=== PATIENT | male | born 1975 | race Caucasian/White ===

== ENCOUNTER 2019-01-08 08:56 | Day surgery (SDC) | payer OTHER, SELFPAY ==
[2019-01-07 15:09] VITALS: BMI 28.7
[2019-01-08] VITALS (13 sets, daily range): BP systolic 120–149; BP diastolic 67–98; PULSE 78–110; RESP 12–20; TEMP 36.1–43; O2SAT 93–99
--- NOTE | 2019-01-08 10:28 | HMH.ANESCL ---
[facility] Anesthesia Checklist - Structural Data Admitted From: Home Planned Operative Procedure/s: scrotal exploration Consent for Planned Operative Procedure(s) Verified: Yes - Airway Assessment C-Spine Mobility Assessed: Yes TMJ Mobility Assessed: Yes Dentition: Good Dentition - Neurological Assessment Level of Consciousness: Awake, Alert, Appropriate - Anesthesia Plan Anesthesia Risk discussed: Yes ASA Class: II Anesthesia Type: General [facility] History I have reviewed the patient's past medical history: Yes Medical History: Denies:: Cancer, Diabetes Mellitus Type 1, Diabetes Mellitus Type 2, Internal Pacemaker, MRSA, Seizures *Have you ever received a pneumonia vaccine?: No *Have you received a flu vaccine this season?: No Other Medical History: Denies: Blood Transfusion Reaction Other Surgeries: Yes: No Previous Surgery, Colonoscopy. No: Pacemaker Amputation: No Fractures: No - *Social History Smoking Status: Current every day smoker Tobacco Type: cigarettes # Packs/Day (cigarettes): 1 Alcohol Intake: never Alcohol Intake Frequency:: a few times a week Substance Use Type: denies use *Occupational Status:: employed Housing: house Household Members: spouse *Travel in the last 8 weeks: None - Psychiatric History Expresses thoughts of harming self/others: None Suicide Plan Description: No Plan Family Hx:: No significant family history
--- NOTE | 2019-01-08 10:29 | HMH.ANESI ---
[facility] Anesthesia Record Part I Intake, IV Amount: 1,000 Estimated blood loss (mL): 0 Urine output (mL): 0 Blood Pressure: 120/75 SaO2: 98 Pulse Rate: 79 Respiratory Rate: 12 Temperature: 98.4 F Patient is:: Awake, Stable Stable to PACU at:: 10:30
--- NOTE | 2019-01-08 10:30 | HMH.ANESII ---
[facility] Anesthesia Record Part II Discharge Time: 11:00 Destination: [facility] PACU nurse assessment reviewed?: Yes Patient Condition:: Good Anesthesia Complications:: None Swallowing reflex intact?: Yes Cyanosis?: No
--- NOTE | 2019-01-08 10:31 | P.PN_ITS ---
[facility] Anesthesia Record Part II Discharge Time: 11:00 Destination: [facility] PACU nurse assessment reviewed?: Yes Patient Condition:: Good Anesthesia Complications:: None Swallowing reflex intact?: Yes Cyanosis?: No
--- NOTE | 2019-01-08 11:34 | PC.NURSE ---
1035-Pt responsive, LMA removed at this time. 1040-Ice pack applied to scrotum. pt eating ice chips, tolerating well.
--- NOTE | 2019-01-08 16:51 | HMH.OPNOTE ---
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 He also had a left-sided vasectomy. In healing his right scrotal skin has an area of traction. To the cord stump. This causes issues with hygiene as well as mild irritation and discomfort. He presents today for scrotal exploration and full resolution with release of scrotal skin Operative findings:: Active scar subcutaneously Operative note:: After adequate general anesthesia the genital area was prepped and draped in standard fashion. In the upper right scrotum he has a divot present with the scrotal skin and densely adhered to the cord stop. The superficial skin was excised with electrocautery. Then cautiously the cord stump was delivered by her incising the reactive scar circumferentially. An additional 2-1/2 to 3 cm of stop cord was exposed and skeletonized. This was taken with 2 pedicles clamped and divided. The vas was also tied separately with 2-0 chromic. The cord stump was closed first with a 0 silk followed by a 2-0 chromic suture ligature this was all hemostatic. An additional 2 cm of cord was excised. Dermabond was applied. Condition: stable Disposition: PACU Specimens:: none Complications:: none, He was placed on bactrim bid for one week
== END 2019-01-08 12:00 | disposition home or self-care (01) ==
PROVIDERS: PCP Family Medicine; Visit Provider Urology
PROC: (CPT 15004; principal; 2019-01-08 09:30)
DX: N50.89 Other specified disorders of the male genital organs (principal); L98.0 Pyogenic granuloma
CPT/HCPCS: 15004; 96374; J2405

== ENCOUNTER 2021-02-15 15:42 | Emergency (ER) | payer OTHER, SELFPAY ==
--- NOTE | 2021-02-15 15:45 | ECG_ITS ---
APPROVED REPORT Exam: Resting ECG HR:115 bpm ECG Measurements Heart Rate 115 AXES MA 138 P 43 QRSd 80 QRS 69 QT 336 T 13 QTc 464 Conclusion Sinus tachycardia Otherwise normal ECG Electronically signed by : Austen Meza, 02/17/2021 21:40:25
[2021-02-15 15:47] VITALS: BP 163/102; PULSE 115; RESP 18; TEMP 36.9; O2SAT 99; BMI 28.7
--- NOTE | 2021-02-15 15:53 | HMH.EDCP ---
ED Disposition Clinical Impression: Atypical chest pain Disposition: Home, Self-Care Condition on Discharge: Good Instructions: DI for Atypical Chest Pain Additional Instructions: Take [id number] Tylenol or ibuprofen for your pain. Follow-up with a primary care physician of your choice if your symptoms do not improve in the next few days. Your work-up today in the emergency department and not reveal any life-threatening or dangerous causes for your symptoms. Nevertheless, I suggest that you follow-up with a primary care physician for further testing that could identify causes which are not identifiable in the emergency department today. Turn to the emergency department if your symptoms worsen in any way. Referrals: Provider,Referral, [Primary Care Provider] - - Critical Care Critical Care Time: No Attestation: On 02/15/21, the high probability of a clinically significant, sudden or life threatening deterioration of the following system(s) required my full and direct attention, intervention and personal management. The time I documented below is in addition to time spent performing reported procedures but includes the following listed in this critical care notation. Medical Decision Making - Medical Records Medical records reviewed: Yes: I reviewed the patient's medical records. - Ten Inquiry Pt receiving controlled substance: No Vital Signs: 02/15/21 15:47 02/15/21 16:09 02/15/21 16:30 Temperature 98.5 F Temperature Source Oral Pulse Rate 104 H 103 H Pulse Rate [Right] 115 H Respiratory Rate 18 21 19 Blood Pressure 144/96 H 144/96 H Blood Pressure [Right Arm] 163/102 H Blood Pressure Mean 105 Blood Pressure Mean [Right Arm] 122 02 Sat by Pulse Oximetry 99 96 95 Oxygen Delivery Method Room Air - Lab Data Lab results reviewed: Yes: I reviewed the patient's lab results. Lab Results 02/15/21 13:45: WBC 10.4, RBC 4.98, Hgb 16.2, Hct 46.8, MCV 93.8, MCH 32.5 H, MCHC 34.6, RDW 13.3, Plt Count 259, MPV 8.5, Neut % (Auto) 63.9, Lymph % (Auto) 26.8, [place] % (Auto) 6.6, Eos % (Auto) 1.8, Baso % (Auto) 0.8, Neut # (Auto) 6.7, Lymph # (Auto) 2.8, [place] # (Auto) 0.7, Eos # (Auto) 0.2, Baso # (Auto) 0.1 02/15/21 13:45: Sodium 142, Potassium 3.5, Chloride 103, Carbon Dioxide 28, Anion Gap 14.5, BUN 19, Creatinine 1.00, Estimated Creat Clear 121, Estimated GFR 81, Est GFR ( Amer) 98, Glucose 87, Calcium 10.0, Total Bilirubin 0.4, AST 37, ALT 37, Alkaline Phosphatase 61, Troponin I < 0.01, Total Protein 8.4 H, Albumin 5.1 H, Globulin 3.3 H, Albumin/Globulin Ratio 1.5 Result diagrams: 02/15/21 13:45 02/15/21 13:45 Orders (Tests/Meds): ORDERS Category Date Time Status Troponin I Q3H Lab 02/15/21 19:30 Ordered Troponin I Q3H Lab 02/15/21 22:30 Ordered - Radiology Data #1 Image(s): Chest Image Reviewed: Yes I reviewed the patient's radiology results, Yes I reviewed the patient's radiology image, Yes I have reviewed radiologist's interpretation - ECG Data Tracing #1 I reviewed this ECG and interpreted as documented below: The EKG was performed at [facility] on February 15. It shows a sinus tachycardia at 115 bpm. Otherwise the EKG is normal. There is no ischemia. There is no early repolarization. There are no dysrhythmias. Axes are normal. Normal Sinus Rhythm: Yes Arrhythmias present: sinus tach Medical Decision Narrative: The patient presents to the emergency department complaining of chest pain that is ongoing for several days. Has been constant in nature. It is not exertional. The patient's work-up in the emergency department not reveal any life-threatening or dangerous causes for the patient's chest pain. The EKG does not show any ischemic changes. The patient's troponin is undetectable. Patient's chest x-ray is also unremarkable. I feel that the patient is suffering from atypical chest pain and can be safely discharged home with instructions
[2021-02-15 16:09] VITALS: BP 144/96; PULSE 104; RESP 21; O2SAT 96
--- NOTE | 2021-02-15 16:21 | XR_ITS ---
PROCEDURE: XR CHEST PORTABLE CLINICAL HISTORY: Dyspnea, COVID+, CP COMPARISON: No exams were available for comparison FINDINGS: The cardiomediastinal silhouette and pulmonary vascularity are within normal limits. The lungs are clear without infiltrates, suspicious nodules, or pleural effusions. No acute bony abnormalities. IMPRESSION: No acute findings. Dictated by: Zeeshan Bravo MD 02/15/2021 16:46 Zeeshan Bravo MD in [place] 02/15/2021 16:46
[2021-02-15 16:30] VITALS: BP 144/96; PULSE 103; RESP 19; O2SAT 95
[2021-02-15 16:30] LABS: Basophils # 0.1 K/mm3 (0-0.2); Basophils % 0.8 % (0.1-2.0); Eosinophils # 0.2 K/mm3 (0.0-0.4); Eosinophils % 1.8 % (0.1-12.0); Hematocrit 46.8 % (42.0-52.0); Hemoglobin 16.2 g/dL (14.1-18.0); Lymphocytes # 2.8 K/mm3 (0.7-4.5); Lymphocytes % 26.8 % (10-50); Mean Corpuscular HGB Conc 34.6 g/dL (31.8-35.4); Mean Corpuscular Hemoglobin 32.5 pg (27.0-31.2); Mean Corpuscular Volume 93.8 fl (80-94); Mean Platelet Volume 8.5 fl (7.4-10.4); Monocytes # 0.7 K/mm3 (0.1-1.0); Monocytes % 6.6 % (1.7-9.3); Neutrophils # 6.7 K/mm3 (1.8-7.8); Neutrophils % 63.9 % (37.0-80.0); Platelet Count 259 K/mm3 (142-424); Red Blood Count 4.98 M/mm3 (4.60-6.20); Red Cell Distribution Width 13.3 % (11.5-17.5); White Blood Count 10.4 K/mm3 (4.8-10.8)
[2021-02-15 16:36] LABS: Chloride 103 mmol/L (98-107); Potassium 3.5 mmoL/L (3.5-5.1); Sodium 142 mmol/L (136-145)
[2021-02-15 16:39] LABS: Alanine Aminotransferase 37 U/L (12-78); Albumin Level 5.1 g/dl (3.5-5.0); Albumin/Globulin Ratio 1.5 (1.1-1.8); Alkaline Phosphatase 61 U/L (38-126); Anion Gap 14.5 mEq/L (5-15); Aspartate Amino Transferase 37 U/L (17-59); Bilirubin,Total 0.4 mg/dl (0.2-1.3); Blood Urea Nitrogen 19 mg/dl (9-20); Carbon Dioxide 28 mmol/L (22.0-30.0); Creatinine Clearance Estimated 121 mL/min (50-200); Estimated Glomerular Filt Rate 81 ml/min (>60); GFR (African American) 98 ML/MIN (>60); Globulin 3.3 g/dL (1.3-3.2); Glucose 87 mg/dl (74-100); Total Protein,Serum 8.4 g/dl (6.3-8.2)
[2021-02-15 16:55] LABS: Troponin I < 0.01 ng/ml (0.00-0.034)
[2021-02-15 17:11] VITALS: BP 134/89; PULSE 93; RESP 18; TEMP 36.9; O2SAT 100
== END 2021-02-15 17:11 | disposition home or self-care (01) ==
PROVIDERS: Emergency Provider Emergency Medicine
DX: R07.89 Other chest pain (principal); F17.210 Nicotine dependence, cigarettes, uncomplicated
CPT/HCPCS: 71045; 80053; 84484; 85025; 93005; 99282; 99283

== ENCOUNTER 2022-11-08 16:28 | Emergency (ER) | payer OTHER, SELFPAY ==
[2022-11-08 16:30] VITALS: BP 147/92; PULSE 112; RESP 20; TEMP 36.8; O2SAT 96; BMI 28.7
--- NOTE | 2022-11-08 16:47 | EXP.UTC ---
Discharge Plan Disposition Patient Disposition: Home, Self-Care Condition: Good Prescriptions Prescriptions: No Action loratadine 10 MG tablet 10 mg PO DAILY Referrals Follow up/Referrals: Orestes Norris MD [Primary Care Provider] - See instructions Activity Restrictions/Add. Instructions Additional Instructions/Restrictions: Keep the wound clean and dry. Keep a dressing on it if you are going to be getting it dirty. Watch the wound for signs of infection, such as redness, swelling, drainage, fever. etc. Take tylenol or ibuprofen for pain. Follow up with your regular doctor. Return in 7 to 10 days to have the sutures removed. GO TO THE ER FOR ANY WORSENING SYMPTOMS OR CONCERNS. Clinical Impressions Clinical Impression: Laceration of right lower extremity Instructions Patient Instructions: DI for Laceration Repair, DI for Laceration Repair -- Simple Discharge ED Provider: Mark Gallegos [facility] General Stated complaint: AO04/04@1500 lac to RT knee Time Seen by Provider: 11/08/22 16:47 History of Present Illness Provider Complaint: He states that he slipped with a chain saw and accidently cut the area just above his right knee. He denies any leg weakness. He denies any numbness or tingling of the extremity. The wound did have some bleeding, but he states that he was able to control it easily. Related Data Home Medications Medication Instructions Recorded Confirmed loratadine 10 mg tablet 10 mg PO DAILY allergies 01/07/19 02/05/19 Allergies Allergy/AdvReac Type Severity Reaction Status Date / Time No Known Allergies Allergy Verified 11/08/22 16:48 [facility] Disclaimer: The information contained in this section may have been updated after the patient was seen, as this information can be updated by other users. Social History Smoking Status: Current every day smoker tobacco type: cigarettes packs per day: 1 alcohol intake: never substance use type: denies use current occupational status: employed Travel in the last 8 weeks: None household members: spouse housing: house current occupation: self employed current occupational exposures/hazards: No caffeine: No ROS Obtained: Yes All systems reviewed & no additional complaints except as documented Constitutional Constitutional: Denies chills and Denies fever(s) Eyes Eyes: Denies eye discharge ENT Ears, Nose, Mouth, and Throat: Denies dizziness, Denies otalgia and Denies sore throat Cardiovascular Cardiovascular: Denies chest pain Respiratory Respiratory: Denies shortness of breath, Denies chest congestion, Denies cough, Denies stridor and Denies wheezing Gastrointestinal Gastrointestingal: Denies nausea or vomiting Musculoskeletal Musculoskeletal: Reports system reviewed and no additional complaints, except as documented and Denies arthralgias Integumentary/Breasts Skin/Breast: Reports as per HPI Neurologic Neurologic: Denies dizziness and Denies paresthesias Allergic/Immunologic Allergic/Immunologic: Denies wheezing Physical Exam General General appearance: alert and in no apparent distress Head Head exam: atraumatic, normocephalic and normal inspection Eye Eye exam: Present normal appearance, PERRL and EOMI ENT ENT exam: Present normal exam, normal oropharynx, mucous membranes moist, TM's normal bilaterally and normal external ear exam Neck Neck exam: Present normal inspection, full ROM and trachea midline; Absent meningismus or lymphadenopathy Chest Chest inspection: Present normal inspection and symmetric chest wall rise; Absent tenderness Respiratory Respiratory exam: Present normal lung sounds bilaterally; Absent respiratory distress Cardiovascular Cardiovascular exam: Present regular rate and normal rhythm; Absent JVD Abdominal Exam Abdominal exam: Present soft and normal bowel sounds; Absent distention, tenderness or guarding Extre
[2022-11-08 17:43] VITALS: BP 147/92; PULSE 112; RESP 20; TEMP 36.8; O2SAT 96
== END 2022-11-08 17:43 | disposition home or self-care (01) ==
PROVIDERS: Emergency Provider Nurse Practitioner Family; PCP Emergency Medicine
DX: S81.011A Laceration without foreign body, right knee, initial encounter (principal); F17.210 Nicotine dependence, cigarettes, uncomplicated; W31.2XXA Contact with powered woodworking and forming machines, initial encounter
CPT/HCPCS: 12002; 99213; 99214; G0463

== ENCOUNTER 2025-01-25 10:06 | Outpatient (CLI) | payer OTHER, SELFPAY ==
[2025-01-25 17:40] LABS: Coronavirus 19, PCR Not Detected (NotDetected); Human Rhinovirus Not Detected (NotDetected); Influenza A, PCR Not Detected (NotDetected); Influenza B, PCR Not Detected (NotDetected); Respiratory Syncytial Virus Not Detected (NotDetected)
--- OUTSIDE RECORDS SUMMARY | 2025-01-27 10:28 | XMS_ITS | Data Portability ---
Author Organization [facility] Boateng [facility] [employer] Address [address] [place] [address] Assessment Encounter Date Assessment Date Assessment LastModified by Organization Details LastModified Time 09/27/2023 09/27/2023 Preoperative diagnosis: Sinus tract on scrotum Postoperative diagnosis: Sinus tract on scrotum leading to foreign body/previous suture from previous surgery. Procedure: Excision foreign body, excision sinus tract, revision of incision on scrotum Anesthesia: General Complications: None Findings: Silk suture at the base of the sinus tract which is removed Operative report: After consent was obtained the patient was brought to the operating suite was placed in supine position. Anesthesia was induced. He was sterilely prepped and draped in normal fashion. His sinus tract was identified and grasped using an Allis. We created an elliptical incision around the sinus tract and then dissected down on the sinus tract for approximately 3 cm. At what appeared to be the base of the sinus tract we open the sinus tract seeing a silk suture and not from previous surgery. This was likely the source of the sinus tract from its inflammation. There was no sign of purulence or infection. We removed the suture. The base of the sinus tract was grasped using a clamp and then tied off using a stick tie of 3-0 Vicryl suture. Hemostasis was excellent and controlled using electrocautery. The tension on the skin was gone after excision of the sinus tract. We brought the subcutaneous tissues together using a 3-0 Vicryl suture. The skin was brought together using a 3-0 chromic suture in a horizontal mattress fashion. Sterile dressing was applied. Anesthesia reversed. Patient was taken to the recovery room in stable condition. Please note that we did use Marcaine without epinephrine for local anesthesia. [email or web address] Not available 09/27/2023 15:10:32 Plan of Treatment Reminders Order Date Submit Date Provider Last Modified By Organization Details Last Modified Time Details Appointments None recorded. Lab None recorded. Referral None recorded. Procedures None recorded. Surgeries excision, scrotal lesion (SURG) 2023 024 [email or web address] [facility], [address], [facility] [address], [place], [address], 4 16:45:27 Imaging None recorded. Medication Orders Percocet 7.5 mg-325 mg tablet 2023 024 [id number], [address], [place], [place], [phone], 4 15:07:40 doxycycline monohydrate 100 mg capsule 2023 024 [id number], [address], [place], [place], [phone], 4 10:15:36 Patient TargetsNo targets recorded. Patient Instructions Encounter Date Encounter Id Patient Instructions Last Modified By Organization Details Last Modified Time 08/03/2023 [id number] We agreed to try to exercise this sinus tract and abnormal area of the scrotum. We talked about risk, benefits and alternatives, including bleeding, infection, potential recurrence. [email or web address] Not available 08/07/2023 15:05:08 Reason for Referral None Reported. Results Created Date Observation Date Name Description Value Unit Range Abnormal Flag Note LastModifiedBy Organization Detail LastModifiedTime 09/27/19 24 09/27/2023 SURGI SERGIO surgical SEE BELOW normal Depar tment of Patho logy Surgi sergio Patho logy Repor t NAME: COREY LUCIANOPatrick REAVES PATH. :SS-2 [id number] Copy to: Diagn osis: Right scrot al sinus tract : Featu res consi stent with ruptu red folli cular type cyst with surro undin g infla med granu latio n tissu e and fibro sis. SOURC E OF SPECI MEN: SINUS ES, RIGHT SCROT AL TRACT CLINI SERGIO INFOR MATIO N: RIGHT SCROT AL MASS Gross Descr iptio n: Recei nicolasa in forma nanette label ed with the patie nt's name and desig nated as righ t scrot al sinus tract is an unori ented pink- youngblood skin ellip se which is 2.5 x 1.7 cm excis ed to a depth of 1.5 cm. The epide rmal surfa ce is pink- youngblood and wrink led with a punct ate dimpl e/pos sible sinus tract . The juancarlos ns are inked blue. Secti oning revea ls an appro ximat savannah 1.5 x 0.5 x 0.5 cm dark chantale sh-ta n possi ble cyst/ possi ble absce ss which commu nicat es with the skin surfa ce. The cyst/ absce ss is submi tted entir savannah in two casse ttes label ed A1-A2 . JAB 09/27 04:58 PM Micro scopi c Descr iptio n: A micro scopi c exami natio n has been perfo rmed and the resul t(s) are as noted above . BRADEN Rios MD Loretta d Out Date: 10/02 16:17 Page 1 of 1 Not Available [facility] [address] [place] [address], [phone], 10/02/2023 16:18:07 Result Notes None recorded. Problems Name Problem SNOMED Code Status Onset Date Resolution Date Notes Provider Name and Address Organization Details Recorded Time Scrotal mass [id number] Active 024 PERLA BARKER JR, MD [address] [place] [address], [phone] , [facility] 08/07/2023 15:04:39 Problem Notes None recorded. Medical Equipment None Reported. Allergies No known drug allergies Medications Name Sig Start Date Stop Date Status Note LastModified by Organization Details LastModified Time Percocet 7.5 mg-325 mg tablet Take 1 tablet every 6 hours by oral route as needed. 2023 active Not Available Not Available Not Avai lable doxycycline monohydrate 100 mg capsule Take 1 capsule twice a day by oral route. 10/19 completed Not Available Not Available Not Available testosterone active Not Available Not Available Not Available Vitals Date Recorded Body height Body mass index (BMI) Body weight Provider Name and Address Organization Details Last Updated DateTime 10/20/2023 177.8 cm 28.7 kg/m2 05111.47 g Kathleen Mcgrath [facility] 10/20/2023 10:15:19 Date Recorded Body height Body mass index (BMI) Body weight Provider Name and Address Organization Details Last Updated DateTime 08/03/2023 177.8 cm 28.7 kg/m2 47476.47 g Hannah Cliftonpherd [facility] 08/03/2023 10:07:54 Social History None recorded. Functional Status None recorded. Mental Status None recorded. Family History Nothing Reported. Medical History No medical history recorded. Past Encounters Encounter ID Performer Location Encounter Start Date Encounter Closed Date Diagnosis/Indication Diagnosis SNOMED-CT Code Diagnosis ICD10 Code Diagnosis Note [id number] MD CATINA ZENG JR, [facility] [address] [place] [address] 08/03/2023 09:52:40 08/03/2023 10:19:18 Scrotal mass 14573677 N50.89 [id number] PERLA BARKER JR, MD SURGERY SCHEDULE [address] [place] [address] 09/27/2023 13:28:14 09/27/2023 13:28:52 Postoperative pain 231497830 G89.18 [id number] MD CATINA ZENG JR, [facility] [address] [place] [address] 10/20/2023 09:58:26 10/23/2023 04:11:59 Scrotal mass 97636573 N50.89 Health Concerns Section Related Observation LastModified by Organization Detai ls LastModified Time None Recorded Concern Status LastModified by Organization Details LastModified Time None Recorded Advance Directives Directive None Recorded Payers Insurance Date Sequence Insurance Name Policy Number Policy Plascencia Covered Member ID Plascencia Member ID Guarantor Name 10/23/2023 1 [facility] [id number] Pee Luciano [id number] Pee Luciano Notes Date Note Type Note Provider Name and Address Organization Details Recorded Time 08/03/2023 text/html Patient is in today for evaluation of scrotal sinus with poor healing from previous scrotal surgery. 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 This healed poorly and he had a revision of his incision in 2018. Unfortunately, this did not heal either, and he appears to have a sinus tract in the right minnie scrotum. He has discomfort with this on a daily basis. He's interested in scrotoplasty. There's a mild amount of drainage from this area. MD Jose Armando [place], [address], [facility] 08/07/2023 15:05:33 10/20/2023 text/html Patient is in today for evaluation of scrotal sinus with poor healing from previous scrotal surgery. 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 This healed poorly and he had a revision of his incision in 2018. Unfortunately, this did not heal either, and he appears to have a sinus tract in the right minnie scrotum. He has discomfort with this on a daily basis. He's interested in scrotoplasty. There's a mild amount of drainage from this area. Patient underwent sinus tract excision September 27, 2023. Symptoms have resolved. Things are healing well. Pathology benign [place], [address], [facility] 10/22/2023 16:18:57
--- OUTSIDE RECORDS SUMMARY | 2025-01-27 10:28 | XMS_ITS | Data Portability ---
Author Organization [facility] Address [address] [place] [address] Assessment Encounter Date Assessment Date Assessment LastModified by Organization Details LastModified Time 11/03/2022 11/03/2022 Will obtain lab work from patient today. PATIENT TO CONTINUE WITH CURRENT MANAGEMENT. WE HAVE HAD EXTENSIVE DISCUSSIONS REGARDING CHRONIC ISSUES. WILL CALL PATIENT TO DISCUSS RESULTS OF LAB WORK AND MAKE PLANS BASED ON FINDINGS. [email or web address] Not available 11/03/2022 10:59:42 Plan of Treatment Reminders Order Date Submit Date Provider Last Modified By Organization Details Last Modified Time Details Appointments None recorded. Lab testosteron e, total, serum 2022 023 [facility] (Lab Registration) , [address] [place], [address], 3 06:12:52 testosteron e, free, serum 2022 023 [facility] (Lab Registration) , [place], [address], 3 23:08:41 CMP, serum or plasma 2022 023 [facility] (Laboratory), [address] [place], [address], 3 13:18:55 CBC w/ auto diff 2022 023 [facility] (Laboratory), [address] [place], [address], 3 12:48:27 TSH, serum or plasma 2022 023 [facility] (Laboratory), [address] [place], [address], 3 13:18:53 HbA1c (hemoglobin A1c), blood 2022 023 [facility] (Laboratory), [address] [place], [address], 3 13:23:35 lipid panel, serum 2022 023 [facility] (Laboratory), [address] [place], [address], 3 13:18:57 PSA, serum or plasma 2022 023 [facility] (Laboratory), [address] [place], [address], 3 13:18:51 Referral None recorded. Procedures None recorded. Surgeries None recorded. Imaging None recorded. Medication Orders citalopram 20 mg tablet 2022 023 [id number], [address] [place], [id number], 3 11:08:34 testosteron e cypionate 200 mg/mL intramuscul ar oil 2022 023 [id number], [address] [place], [id number], 3 12:30:29 Patient TargetsNo targets recorded. Patient InstructionsNo instructions recorded. Reason for Referral None Reported. Results Created Date Observation Date Name Description Value Unit Range Abnormal Flag Note LastModifiedBy Organization Detail LastModifiedTime 11/04/19 23 11/03/2022 CBC AUTO W DIFF WBC 6.9 10 4.5-11 .5 Not Available [facility] (Lab Registration) [address] [place], [address], 11/03/2022 12:48:27 11/04/19 23 11/03/2022 CBC AUTO W DIFF RBC 4.57 10 4.25-5 .57 Not Available [facility] (Lab Registration) [address] [place], [address], 11/03/2022 12:48:27 11/04/19 23 11/03/2022 CBC AUTO W DIFF HGB 14.8 g/dL 13.5-1 7.2 Not Available [facility] (Lab Registration) [address] [place], [address], 11/03/2022 12:48:27 11/04/19 23 11/03/2022 CBC AUTO W DIFF HCT 42.9 % 42.0-5 2.0 Not Available [facility] (Lab Registration) [address] [place], [address], 11/03/2022 12:48:27 11/04/19 23 11/03/2022 CBC AUTO W DIFF MCV 93.9 fL 80-95 Not Available [facility] (Lab Registration) [address] [place], [address], 11/03/2022 12:48:27 11/04/19 23 11/03/2022 CBC AUTO W DIFF MCH 32.4 pg 27.0-3 4.0 Not Available [facility] (Lab Registration) [address] [place], [address], 11/03/2022 12:48:27 11/04/19 23 11/03/2022 CBC AUTO W DIFF MCHC 34.5 g/dL 32.0-3 6.0 Not Available [facility] (Lab Registration) [address] [place], [address], 11/03/2022 12:48:27 11/04/19 23 11/03/2022 CBC AUTO W DIFF platelet count 251 10 150-45 0 Not Available [facility] (Lab Registration) [address] [place], [address], 11/03/2022 12:48:27 11/04/19 23 11/03/2022 CBC AUTO W DIFF RDW 12.3 % 12.3-1 5.1 Not Available [facility] (Lab Registration) [address] [place], [address], 11/03/2022 12:48:27 11/04/19 23 11/03/2022 CBC AUTO W DIFF MPV 10.9 fL 7.4-10 .4 high Not Available [facility] (Lab Registration) [address] [place], [address], 11/03/2022 12:48:27 11/04/19 23 11/03/2022 CBC AUTO W DIFF granulocyte% 58.8 % 40-75 Not Available [facility] (Lab Registration) [address] [place], [address], 11/03/2022 12:48:27 11/04/19 23 11/03/2022 CBC AUTO W DIFF lymphocyte% 29.5 % 15-57 Not Available [facility] (Lab Registration) [address] [place], [address], 11/03/2022 12:48:27 11/04/19 23 11/03/2022 CBC AUTO W DIFF monocyte% 8.1 % 4.0-12 .0 Not Available [facility] (Lab Registration) [address] [place], [address], 11/03/2022 12:48:27 11/04/19 23 11/03/2022 CBC AUTO W DIFF eosinophil% 2.2 % 0.0-4. 0 Not Available [facility] (Lab Registration) [address] [place], [address], 11/03/2022 12:48:27 11/04/19 23 11/03/2022 CBC AUTO W DIFF basophil% 0.7 % 0.0-1. 0 Not Available [facility] (Lab Registration) [address] [place], [address], 11/03/2022 12:48:27 11/04/19 23 11/03/2022 CBC AUTO W DIFF immature granulocytes % 0.7 % 0.0-0. 8 Not Available [facility] (Lab Registration) [address] [place], [address], 11/03/2022 12:48:27 11/04/19 23 11/03/2022 CBC AUTO W DIFF granulocyte# 4.04 10 Not Available [facility] (Lab Registration) [address] [place], [address], 11/03/2022 12:48:27 11/04/19 23 11/03/2022 CBC AUTO W DIFF lymphocyte# 2.03 10 Not Available [facility] (Lab Registration) [address] [place], [address], 11/03/2022 12:48:27 11/04/19 23 11/03/2022 CBC AUTO W DIFF monocyte# 0.56 10 Not Available [facility] (Lab Registration) [address] [place], [address], 11/03/2022 12:48:27 11/04/19 23 11/03/2022 CBC AUTO W DIFF eosinophil# 0.15 10 Not Available [facility] (Lab Registration) [address] [place], [address], 11/03/2022 12:48:27 11/04/19 23 11/03/2022 CBC AUTO W DIFF basophil# 0.05 10 Not Available [facility] (Lab Registration) [address] [place], [address], 11/03/2022 12:48:27 11/04/19 23 11/03/2022 CBC AUTO W DIFF immature granulocytes # 0.05 10 Not Available [facility] (Lab Registration) [address] [place], [address], 11/03/2022 12:48:27 11/04/19 23 11/03/2022 CBC AUTO W DIFF manual differential NO Not Available [facility] (Lab Registration) [address] [place], [address], 11/03/2022 12:48:27 11/04/19 23 11/03/2022 CBC AUTO W DIFF note Unles s other galvan noted testi ng perfo rmed at: [facility] [address], [place] [id number] [phone] John buck MD CLIA: [id number] Not Available [facility] (Lab Registration) [address] [place], [address], 11/03/2022 12:48:27 11/04/19 23 11/03/2022 PROST ATE SPECI FIC AG (PSA) prostate specific Ag (PSA) 2.17 NG/mL 0.0-4. 0 Not Available [facility] (Lab Registration) [address] [place], [address], 11/03/2022 13:18:51 11/04/19 23 11/03/2022 PROST ATE SPECI FIC AG (PSA) note Unles s other galvan noted testi ng perfo rmed at: [facility] [address], [place] [id number] [phone] John buck MD CLIA: [id number] Not Available [facility] (Lab Registration) [address] [place], [address], 11/03/2022 13:18:51 11/04/19 23 11/03/2022 THYRO ID STIMU LATIN G HORMO NE thyroid stimulating hormone 0.79 mIU/m L 0.34-4 .80 Not Available [facility] (Lab Registration) [address] [place], [address], 11/03/2022 13:18:53 11/04/19 23 11/03/2022 THYRO ID STIMU LATIN G HORMO NE note Unles s other galvan noted testi ng perfo rmed at: [facility] [address] [place] [address] [phone] John buck MD CLIA: [id number] Not Available [facility] (Lab Registration) [address], [place], [address], 11/03/2022 13:18:53 11/04/19 23 11/03/2022 COMP METAB OLIC PANEL sodium 141 mmol/ L 136-14 5 Not Available [facility] (Lab Registration) [address], [place], [address], 11/03/2022 13:18:54 11/04/19 23 11/03/2022 COMP METAB OLIC PANEL potassium 4.1 mmol/ L 3.5-5. 1 Not Available [facility] (Lab Registration) [address], [place], [address], 11/03/2022 13:18:54 11/04/19 23 11/03/2022 COMP METAB OLIC PANEL chloride 103 mmol/ L 98-107 Not Available [facility] (Lab Registration) [address] [place], [address], 11/03/2022 13:18:54 11/04/19 23 11/03/2022 COMP METAB OLIC PANEL carbon dioxide 30 mmol/ L 21-32 Not Available [facility] (Lab Registration) [address] [place], [address], 11/03/2022 13:18:54 11/04/19 23 11/03/2022 COMP METAB OLIC PANEL anion gap 8.0 Not Available [facility] (Lab Registration) [address] [place], [address], 11/03/2022 13:18:54 11/04/19 23 11/03/2022 COMP METAB OLIC PANEL glucose 173 mg/dL 70-110 high Not Available [facility] (Lab Registration) [address] [place], [address], 11/03/2022 13:18:54 11/04/19 23 11/03/2022 COMP METAB OLIC PANEL blood urea nitrogen 14 mg/dL 7-18 Not Available [facility] (Lab Registration) [address] [place], [address], 11/03/2022 13:18:54 11/04/19 23 11/03/2022 COMP METAB OLIC PANEL creatinine 1.1 mg/dL 0.8-1. 3 Not Available [facility] (Lab Registration) [address] [place], [address], 11/03/2022 13:18:54 11/04/19 23 11/03/2022 COMP METAB OLIC PANEL BUN/creatini ne ratio 12.7 ratio 9-21 Not Available [facility] (Lab Registration) [address] [place], [address], 11/03/2022 13:18:54 11/04/19 23 11/03/2022 COMP METAB OLIC PANEL estimated glom filtration rate 77 mL/mi n >60- Not Available [facility] (Lab Registration) [address] [place], [address], 11/03/2022 13:18:54 11/04/19 23 11/03/2022 COMP METAB OLIC PANEL total protein 7.2 g/dL 6.4-8. 2 Not Available [facility] (Lab Registration) [address] [place], [address], 11/03/2022 13:18:54 11/04/19 23 11/03/2022 COMP METAB OLIC PANEL albumin 4.0 g/dL 3.4-5. 0 Not Available [facility] (Lab Registration) [address] [place], [address], 11/03/2022 13:18:54 11/04/19 23 11/03/2022 COMP METAB OLIC PANEL calcium 9.4 mg/dL 8.5-10 .1 Not Available [facility] (Lab Registration) [address], [place], [address], 11/03/2022 13:18:54 11/04/19 23 11/03/2022 COMP METAB OLIC PANEL corrected calcium 9.4 mg/dL 8.5-10 .1 Not Available [facility] (Lab Registration) [address], [place], [address], 11/03/2022 13:18:54 11/04/19 23 11/03/2022 COMP METAB OLIC PANEL bilirubin total 0.3 mg/dL 0.4-1. 5 low Not Available [facility] (Lab Registration) [address] [place], [address], 11/03/2022 13:18:54 11/04/19 23 11/03/2022 COMP METAB OLIC PANEL AST (SGOT) 29 U/L 15-37 Not Available [facility] (Lab Registration) [address] [place], [address], 11/03/2022 13:18:54 11/04/19 23 11/03/2022 COMP METAB OLIC PANEL ALT (SGPT) 46 U/L 12-78 Not Available [facility] (Lab Registration) [address] [place], [address], 11/03/2022 13:18:54 11/04/19 23 11/03/2022 COMP METAB OLIC PANEL alk phosphatase 57 U/L 50-170 Not Available [facility] (Lab Registration) [address] [place], [address], 11/03/2022 13:18:54 11/04/19 23 11/03/2022 COMP METAB OLIC PANEL note Unles s other galvan noted testi ng perfo rmed at: [facility] [address] [facility] [place] [address] [phone] John buck MD CLIA: [id number] Not Available [facility] (Lab Registration) [address] [place], [address], 11/03/2022 13:18:54 11/04/19 23 11/03/2022 LIPID PANEL triglyceride 213 mg/dL 20-200 high The Natio nal [employer] t[employer] am (NCEP ) has set the follo wing guide lines for Fasti ng Trigl yceri [place]: HERACLIO L: <150 mg/dL BORDE RLINE HIGH: 150 - 199 mg/dL HIGH: 200 - 499 mg/dL VERY HIGH: > or =500 mg/dL Not Available [facility] (Lab Registration) [address] [place], [address], 11/03/2022 13:18:57 11/04/19 23 11/03/2022 LIPID PANEL cholesterol 241 mg/dL 0-200 high The Natio nal [employer] t[employer]gr am (NCEP ) has set the follo wing guide lines for Fasti ng Ivory stero l: ILSA ABLE: <200 mg/dL BORDE RLINE HIGH: 200 - 239 mg/dL HIGH: > or =240 mg/dL Not Available [facility] (Lab Registration) [address] [place], [address], 11/03/2022 13:18:57 11/04/19 23 11/03/2022 LIPID PANEL HDL cholesterol 57 mg/dL 60- low The Natio nal [employer]ca t[employer]gr am (NCEP ) has set the follo wing guide lines for Fasti ng HDL Ivory stero l: LOW HDL: <40 mg/dL HERACLIO L: 40 - 60 mg/dL ILSA ABLE: >60 mg/dL Not Available [facility] (Lab Registration) [address] [place], [address], 11/03/2022 13:18:57 11/04/19 23 11/03/2022 LIPID PANEL LDL calculated 141 mg/dL 100- The Natio nal [employer]ca t[employer]gr am (NCEP ) has set the follo wing guide lines for Fasti ng LDL Ivory stero l: OPTIM AL: < 100 mg/dL LOW RISK: 100 - 129 mg/dL BORDE RLINE HIGH: 130 - 159 mg/dL HIGH: 160 - 189 mg/dL VERY HIGH: > or = 190 mg/dL Not Available [facility] (Lab Registration) [address], [place], [address], 11/03/2022 13:18:57 11/04/19 23 11/03/2022 LIPID PANEL chol/HDL ratio 4 ratio -5 Not Available [facility] (Lab Registration) [address] [place], [address], 11/03/2022 13:18:57 11/04/19 23 11/03/2022 LIPID PANEL note Teodoro s other galvan noted testi ng perfo rmed at: [facility] [address] [place] [address] [phone] John buck MD CLIA: [id number] Not Available [facility] (Lab Registration) [address] [place], [address], 11/03/2022 13:18:57 11/04/19 23 11/03/2022 HEMOG LOBIN A1C glycosylated hemoglobin A1C 5.7 % 4.5-6. 2 Not Available [facility] (Lab Registration) [address] [place], [address], 11/03/2022 13:23:35 11/04/19 23 11/03/2022 HEMOG LOBIN A1C estimated average glucose 117 mg/dL 82-131 Not Available [facility] (Lab Registration) [address] [place], [address], 11/03/2022 13:23:35 11/04/19 23 11/03/2022 HEMOG LOBIN A1C note Teodoro s other galvan noted testi ng perfo rmed at: [facility] [address], [place] [id number] [phone] John buck MD CLIA: [id number] Not Available [facility] (Lab Registration) [address], [place], [address], 11/03/2022 13:23:35 11/04/19 23 11/03/2022 TESTO STERO NE TOTAL note Unles s other galvan noted testi ng perfo rmed at: [facility] [address], [place] [id number] [phone] John buck MD CLIA: [id number] Not Available [facility] (Lab Registration) [address], [place], [address], 11/05/2022 06:12:52 11/04/19 23 11/05/2022 TESTO STERO NE TOTAL testosterone , serum 313 NG/dL 264-91 6 Adult male refer ence inter romulo is based on a popul ation of healt hy nonob pratik males (BMI <30) betwe en 19 and 39 years old. Mehdi luther, et.al . JCEM 2017, 102;1 161-1 173. PMID: 40767 103. Perfo rmed at: - [facility] [address], [place] [address] Lab Direc tor: August tenorio PhD, Phone : [phone] Not Available [facility] (Lab Registration) [address], [place], [address], 11/05/2022 06:12:52 11/04/19 23 11/03/2022 TESTO STERO NE FREE note Unles s other galvan noted testi ng perfo rmed at: [facility] [address], [place] [id number] [phone] John buck MD CLIA: [id number] Not Available [facility] (Lab Registration) [address], [place], [address], 11/07/2022 23:08:41 11/04/19 23 11/07/2022 TESTO STERO NE FREE free testosterone (direct) 6.7 pg/mL 6.8-21 .5 low Perfo rmed at: - [facility] [place] [address] , [place] [address] Lab Direc tor: Heather pereira MD, Phone : [phone] SENT TO REFER ENCE LAB Not Available [facility] (Lab Registration) [address], [place], [address], 11/07/2022 23:08:41 Result Notes None recorded. 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 Medical Equipment None Reported. Allergies No known drug allergies Medications Name Sig Start Date Stop Date Status Note LastModified by Organization Details LastModified Time latanoprost 0.005 % eye drops 11/03 completed Not Available Not Available Not Available ofloxacin 0.3 % eye drops USE 1 DROP IN LEFT EYE FOUR TIMES DAILY FOR 1 WEEK 11/03 completed Not Available Not Available Not Available citalopram 20 mg tablet Take 1 tablet every day by oral route. active Not Available Not Available No t Available prednisolon e acetate 1 % eye drops,suspe nsion USE 1 DROP IN LEFT EYE FOUR TIMES DAILY FOR 1 WEEK 11/03 completed Not Available Not Available Not Available testosteron e cypionate 200 mg/mL intramuscul ar oil Inject by intramusc ular route for 84 days. 2023 active Not Available Not Available Not Avai lable Vitals Date Recorded Body height Body mass index (BMI) Body weight Body temperature Oxygen saturation Oxygen saturation in Arterial blood by Pulse oximetry Heart rate Respiratory rate Systolic blood pressure Diastolic blood pressure Provider Name and Address Organization Details Last Updated DateTime 3 177.8 cm 29.4 kg/m2 00610 g 98.1 [degF] 98 % 98 % 108 /min 18 /min 143 mm[Hg] 90 mm[Hg] Sakina HOLMAN [facility] & [place] 3 10:59:59 Social History Question Answer Notes LastModified by [employer] Details LastModified Time Tobacco Smoking Status Never Smoker Sakina pastor, [facility] & [place] 11/03/2022 11:00:33 What Is Your Level Of Caffeine Consumption? Occasional Information not available 11/03/2022 Has Tobacco Cessation Counseling Been Provided? No Information not available 11/03/2022 Sex: Unknown Functional Status Question Answer Note LastModified by [employer] Details LastModified Time Do you use any illicit or recreational drugs? No Information not available 11/03/2022 Do you or have you ever used any other forms of tobacco or nicotine? No Information not available 11/03/2022 What is your level of alcohol consumption? None Information not available 11/03/2022 Mental Status None recorded. Family History Relationship Description Onset Age of this Age Resolved Age Notes LastModified by Organization Details LastModified Time Father No current problems or disability tpardini Not available 11/03 11:00:23 Mother No current problems or disability tpardini Not available 11/03 11:00:23 Medical History No medical history recorded. Past Encounters Encounter ID Performer Location Encounter Start Date Encounter Closed Date Diagnosis/Indication Diagnosis SNOMED-CT Code Diagnosis ICD10 Code Diagnosis Note [id number] Orestes Norris MD [id number] [address] [address] 11/03/2022 10:48:38 11/03/2022 11:16:11 Testicular hypofunction 715933715 E29.1 we will obtain labs today - will refill meds labs drawn by giacomo RT Ac Anxiety disorder 7059297 06 F41.9 Health Concerns Section Related Observation LastModified by Organization Detai ls LastModified Time None Recorded Concern Status LastModified by Organization Details LastModified Time None Recorded Advance Directives Directive None Recorded Payers Insurance Date Sequence Insurance Name Policy Number Policy Plascencia Covered Member ID Plascencia Member ID Guarantor Name 03/17/2023 1 [employer] [id number] Pee Villa Cates [id number] Pee Cates Notes Date Note Type Note Provider Name and Address Organization Details Recorded Time 11/03/2022 text/html patient presents today for routine follow-up. He is currently requesting refills on his medications. He denies any new issues. Orestes Norris MD [address] [place] [address], [phone] & [place] 11/03/2022 12:30:35
== END 2025-01-25 23:59 | disposition home or self-care (01) ==
LOC: LAB.DROPOF 01-27 10:07
PROVIDERS: PCP Emergency Medicine; Visit Provider Nurse Practitioner
DX: R50.9 Fever, unspecified (principal)
CPT/HCPCS: 87631